=== PATIENT | female | born 1955 | race American Indian/Alaskan Native ===

== ENCOUNTER 2017-08-30 08:48 | Outpatient (CLI) | payer MEDICARE ==
--- NOTE | 2017-08-30 09:51 | XRay Report ---
LUMBAR SPINE RADIOGRAPHS RIGHT HIP RADIOGRAPHS INDICATION: Hip pain. COMPARISON: 08/12/2015 abdomen radiograph. FINDINGS: LUMBAR SPINE: AP and lateral lumbar spine radiographs demonstrate normal vertebral body stature and alignment. Multilevel degenerative spurring. Lower thoracic spine osteophytes also noted. Lower lumbar facet arthropathy. Mild to moderate L5-S1 disc narrowing suspected. Grossly preserved remainder disc heights. Multiple lower abdominal/pelvic surgical clips. Nonobstructive bowel gas pattern. Few pelvic phleboliths. Intact SI joints. Stable cholecystectomy clips as well. RIGHT HIP: AP pelvic radiograph with a frontal projection of the right hip demonstrate normal femoral head contours. Intact SI and hip articulations. Slight acetabular degenerative spurring. Few lower lumbar degenerative changes. Multiple pelvic surgical clips. Few pelvic phleboliths. CONCLUSION: No acute radiographic abnormality with multilevel lumbar spine degenerative changes and pelvic postsurgical changes noted, amongst others, as above. Thank you for the opportunity to participate in this patient's care.
== END 2017-08-30 08:49 | disposition home or self-care (01) ==
LOC: XRAY 08:48
DX: M47.896 Other spondylosis, lumbar region (principal); M12.88 Other specific arthropathies, not elsewhere classified, other specified site; M25.851 Other specified joint disorders, right hip; M25.78 Osteophyte, vertebrae; I87.8 Other specified disorders of veins; Z90.49 Acquired absence of other specified parts of digestive tract
CPT/HCPCS: 72100